=== PATIENT | female | born 1950 | race Two or more races ===

== ENCOUNTER 2017-11-21 16:12 | Emergency (ER) | payer OTHER ==
[~2017-11-21] VITALS: Ht 160 cm; Wt 72.6 kg
[~2017-11-21 16:12] MED LIST: ATENOLOL25 MG; CIPRO500 MG PO; FOLIC ACID0.4 MG; INFED50 MG/ML; Levsin/Sl 0.125 MG TAB.SUBL SL; ORPH100T PO; PROTONIX40 MG PO; SIMVASTATIN40 MG; [UNRECOGNIZED DRUG - OTHER]; [UNRECOGNIZED DRUG - OTHER]
[2017-11-21] MEDS ORDERED: COZAAR50 MG (16:26)
[2017-11-21] MEDS ORDERED: BENADRYL50 MG (16:26)
[2017-11-21] MEDS ORDERED: ALL DAY ALLERGY10 M3 (16:26)
[2017-11-21] MEDS ORDERED: ALLER-CHLOR4 MG (16:28)
[2017-11-21] MEDS ORDERED: ALLERGY REL5 MG/5 ML (16:28)
[2017-11-21] MEDS ORDERED: DESONIDE5 GM (16:29)
[2017-11-21] MEDS ORDERED: MOMETASONE FURO45 GM (16:29)
[2017-11-21] MEDS ORDERED: PERMETHRIN60 GM (16:30)
[2017-11-21] MEDS ORDERED: NYSTATIN1 EAC1 (16:31)
[2017-11-21] MEDS ORDERED: CLOTRIMAZOLE AF15 G3 (16:31)
[2017-11-21] MEDS ORDERED: ALLERGY4 MG (16:32)
[2017-11-21] MEDS ORDERED: ADV ALLERGY CO1 EACH (16:32)
[2017-11-21] MEDS ORDERED: CLARITIN5 MG (16:34)
== END 2017-11-21 19:46 | disposition home or self-care (01) ==
LOC: ER 16:12
DX: L29.8 Other pruritus (principal)

== ENCOUNTER 2018-11-03 08:12 | Outpatient (CLI) | payer OTHER ==
[~2018-11-03 08:12] MED LIST changes: +ADV ALLERGY CO1 EACH; +ALL DAY ALLERGY10 M3; +ALLER-CHLOR4 MG; +ALLERGY REL5 MG/5 ML; +ALLERGY4 MG; +BENADRYL50 MG; +CLARITIN5 MG; +CLOTRIMAZOLE AF15 G3; +COZAAR50 MG; +DESONIDE5 GM; +MOMETASONE FURO45 GM; +NYSTATIN1 EAC1; +PERMETHRIN60 GM
== END 2018-11-03 11:14 | disposition home or self-care (01) ==
LOC: SONOGRAMA 08:12
DX: E04.1 Nontoxic single thyroid nodule (principal)